=== PATIENT | male | born 1955 | race Hispanic/Latino ===

== ENCOUNTER → 2022-03-12 | Outpatient (CLI) | payer OTHER ==
[~2022-03-12] MED LIST: IOHEXOL 350 MG/ML 100ML INFUS..BTL IV ONE; IOHEXOL-350 50ML VIAL IV ONE
== END | disposition home or self-care (01) ==
LOC: RAH 10:41
PROVIDERS: ATTEND Internal Medicine Cardiovascular Disease
DX: J98.11 Atelectasis (principal); J90 Pleural effusion, not elsewhere classified; I70.0 Atherosclerosis of aorta; I70.8 Atherosclerosis of other arteries; I70.203 Unspecified atherosclerosis of native arteries of extremities, bilateral legs; I77.1 Stricture of artery
CPT/HCPCS: 75635; Q9967 ×2

== ENCOUNTER 2022-04-09 20:20 | Observation (INO) | payer OTHER, MEDICARE ==
[~2022-04-09] VITALS: Ht 177.8 cm; Wt 118.3 kg
[2022-04-09] MEDS ORDERED: ZOSYN 3.375GM +NS 50ML IV SCH (21:00)
[2022-04-09 21:15] LABS: BASOPHILS % (AUTO) 0.5 % (0.0-5.0); EOSINOPHILS % (AUTO) 3.6 % (0.0-8.0); HEMATOCRIT 46.1 % (42-54); LYMPHOCYTES % (AUTO) 19.2 % (21.0-51.0); MEAN CORPUSCULAR HEMOGLOBIN 27.2 pg (27.0-33.0); MEAN CORPUSCULAR HGB CONC 31.7 g/dL (32.0-36.0); MEAN CORPUSCULAR VOLUME 85.8 fL (79-99); MONOCYTES % (AUTO) 8.5 % (3.0-13.0); NEUTROPHILS % (AUTO) 67.8 % (40.0-77.0); PLATELET COUNT (AUTO) 252 K/uL (130-400); RED BLOOD CELL COUNT(AUTO) 5.37 MIL/uL (4.50-6.20); RED CELL DISTRIBUTION WIDTH 16.9 % (11.0-15.5); WHITE BLOOD COUNT (AUTO) 8.2 K/uL (4.8-10.8)
[2022-04-09 21:27] LABS: INR 0.98 (0.85-1.15); PROTHROMBIN TIME 10.7 SEC (9.6-11.6)
[2022-04-09 21:28] LABS: PARTIAL THROMBOPLASTIN TIME 27.7 SEC (26.3-35.5); POTASSIUM 5.1 mmol/L (3.5-5.1)
[2022-04-09 21:36] LABS: ALBUMIN 3.5 g/dL (3.5-5.0); TOTAL PROTEIN, SERUM 8.8 g/dL (6.0-8.3)
[2022-04-09 21:43] LABS: CRP QUANTITATIVE 17.6 mg/L (0.00-9.0)
[2022-04-09] MEDS ORDERED: NITROGLYCERIN 1GM OINT 1 INCH/1GM TD ONE (22:00)
[2022-04-09] MEDS ORDERED: ASPIRIN 325MG TAB PO ONE (22:00)
[2022-04-09] MEDS ORDERED: LEVOFLOXACIN 500 MG/D5W 100 ML 100 ML IV ONE (22:00)
[2022-04-09] MEDS: 0.9%NACL 1000ML 1,000 ML IV SCH (22:23)
[2022-04-09 22:54] LABS: CREATINE KINASE, TOTAL 94 U/L (21-232); MYOGLOBIN 60 ng/mL (10-92)
[2022-04-10] VITALS (16 sets, daily range): BP systolic 107–162; BP diastolic 64–100
[2022-04-10] MEDS ORDERED: ISOS30TA92 PO (02:51)
[2022-04-10] MEDS ORDERED: FURO20TA4 PO (02:51)
[2022-04-10] MEDS ORDERED: APIX5TAB PO (02:51)
[2022-04-10] MEDS ORDERED: SACU1TAB PO (02:51)
[2022-04-10] MEDS ORDERED: AEC81 PO (02:51)
[2022-04-10] MEDS ORDERED: TAMS-1 PO (02:51)
[2022-04-10] MEDS ORDERED: FURO40SO PO (02:51)
[2022-04-10] MEDS ORDERED: SERT-438 PO (02:51)
[2022-04-10] MEDS ORDERED: RANO500T6 PO (02:51)
[2022-04-10] MEDS ORDERED: ATOR40TA69 PO (02:51)
[2022-04-10] MEDS ORDERED: EMPA25TA PO (02:51)
[2022-04-10] MEDS ORDERED: [UNRECOGNIZED DRUG - CODE] PO (02:51)
[2022-04-10] MEDS ORDERED: LEVO25TA85 PO (02:51)
[2022-04-10] MEDS ORDERED: LEVO5TAB13 PO (02:51)
[2022-04-10] MEDS ORDERED: METO-391 PO (02:51)
[2022-04-10 04:04] LABS: BASOPHILS % (AUTO) 0.5 % (0.0-5.0); EOSINOPHILS % (AUTO) 4.3 % (0.0-8.0); HEMATOCRIT 42.8 % (42-54); MEAN CORPUSCULAR HEMOGLOBIN 27.3 pg (27.0-33.0); MEAN CORPUSCULAR HGB CONC 31.5 g/dL (32.0-36.0); MEAN CORPUSCULAR VOLUME 86.6 fL (79-99); MONOCYTES % (AUTO) 9.4 % (3.0-13.0); NEUTROPHILS % (AUTO) 70.3 % (40.0-77.0); PLATELET COUNT (AUTO) 238 K/uL (130-400); RED BLOOD CELL COUNT(AUTO) 4.94 MIL/uL (4.50-6.20); WHITE BLOOD COUNT (AUTO) 7.6 K/uL (4.8-10.8)
[2022-04-10 04:09] LABS: INR 1.04 (0.85-1.15); PROTHROMBIN TIME 11.3 SEC (9.6-11.6)
[2022-04-10 04:10] LABS: PARTIAL THROMBOPLASTIN TIME 29.9 SEC (26.3-35.5)
[2022-04-10 04:20] LABS: CREATININE 1.8 mg/dL (0.5-1.5); PHOSPHORUS 3.5 mg/dL (2.5-4.9); POTASSIUM 3.5 mmol/L (3.5-5.1)
[2022-04-10] MEDS ORDERED: ASPIRIN 325MG EC TAB PO SCH (09:00)
[2022-04-10] MEDS ORDERED: LEVOFLOXACIN 500 MG/D5W 100 ML IV SCH (09:00)
[2022-04-10] MEDS: 0.9%NACL 1000ML 1,000 ML IV SCH ×4 (09:24→20:16)
[2022-04-10] MEDS ORDERED: NITROGLYCERIN 50MG VIAL ONE (10:02)
[2022-04-10] MEDS ORDERED: IODIXANOL 320 MG/ML 100 ML VIAL ONE (10:02)
[2022-04-10] MEDS ORDERED: MIDAZOLAM HCL 1 MG/ML 2ML VIAL ONE (10:03)
[2022-04-10] MEDS ORDERED: LIDOCAINE HCL 400MG/20ML VIAL ONE (10:03)
[2022-04-10] MEDS ORDERED: FENTANYL CITRATE PF 50 MCG/1 ML 2ML VIAL ONE (10:03)
[2022-04-10] MEDS ORDERED: LIDOCAINE HCL 1% 10 ML VIAL ONE (10:36)
[2022-04-10] MEDS ORDERED: HEPARIN 10,000 UNIT/10ML (1,000 UNIT/ML) VIAL ONE (13:12)
[2022-04-10] MEDS ORDERED: 0.9%NACL 1000ML 1,000 ML IV SCH (15:00)
[2022-04-10] MEDS ORDERED: DEXTROSE 50%-WATER 50 ML DISP.SYRIN IV PRN (15:00)
[2022-04-10] MEDS ORDERED: GLUCAGON 1MG KIT 1 MG ML IM PRN (15:00)
[2022-04-10] MEDS ORDERED: LEVOFLOXACIN 250 MG/D5W 50ML 50 ML IVPB SCH (18:00)
[2022-04-10] MEDS: METOPROLOL SUCCINATE 50 MG TAB.SR.24H PO SCH (20:17)
[2022-04-10] MEDS: APIXABAN 5 MG TABLET PO SCH (20:17)
[2022-04-10] MEDS ORDERED: METOPROLOL SUCCINATE 50 MG TAB.SR.24H PO SCH (21:00)
[2022-04-10] MEDS ORDERED: ATORVASTATIN 40 MG TABLET PO SCH ×2 (21:00)
[2022-04-11 03:04] VITALS: BP 150/88
[2022-04-11 03:52] LABS: HEMATOCRIT 42.4 % (42-54); MEAN CORPUSCULAR HEMOGLOBIN 27.4 pg (27.0-33.0); MEAN CORPUSCULAR HGB CONC 31.8 g/dL (32.0-36.0); RED BLOOD CELL COUNT(AUTO) 4.93 MIL/uL (4.50-6.20); WHITE BLOOD COUNT (AUTO) 8.7 K/uL (4.8-10.8)
[2022-04-11 04:18] LABS: CREATININE 1.5 mg/dL (0.5-1.5); POTASSIUM 3.9 mmol/L (3.5-5.1)
[2022-04-11] MEDS: 0.9%NACL 1000ML 1,000 ML IV SCH (04:19)
[2022-04-11 07:30] VITALS: BP 133/63
[2022-04-11] MEDS ORDERED: LEVOTHYROXINE 25 MCG TABLET PO SCH (08:33)
[2022-04-11] MEDS: METOPROLOL SUCCINATE 50 MG TAB.SR.24H PO SCH (08:57)
[2022-04-11] MEDS: APIXABAN 5 MG TABLET PO SCH (08:58)
[2022-04-11] MEDS ORDERED: SERTRALINE HCL 50 MG TABLET PO SCH (09:00)
[2022-04-11] MEDS ORDERED: NON-FORMULARY MEDICATION 1 EACH (Levocetirizine Dihydrochloride 5 MG) PO SCH (09:00)
[2022-04-11] MEDS ORDERED: ASPIRIN 81MG CHEW TAB PO SCH (09:00)
[2022-04-11] MEDS ORDERED: SACUBITRIL/VALSARTAN 1 EACH TABLET PO SCH (09:00)
[2022-04-11] MEDS ORDERED: ASPIRIN 325MG EC TAB PO SCH (09:00)
[2022-04-11] MEDS ORDERED: ISOSORBIDE MONO 30MG SR TAB PO SCH (09:00)
[2022-04-11] MEDS ORDERED: RANOLAZINE 500 MG TAB.SR.12H PO SCH (09:00)
[2022-04-11] MEDS ORDERED: ***HM***(Levocetirizine Dihydrochloride 5 MG) PO SCH (09:00)
[2022-04-11 11:00] VITALS: BP 157/79
[2022-04-11] MEDS ORDERED: TAMSULOSIN HCL 0.4 MG CAP.ER.24H PO SCH (21:00)
== END 2022-04-11 15:10 | disposition home or self-care (01) ==
LOC: EDH 20:20 → EDHIP 21:36 → 4CH 04-10 00:31
PROVIDERS: ADMIT Internal Medicine; ATTEND Internal Medicine
DX: L97.529 Non-pressure chronic ulcer of other part of left foot with unspecified severity (principal); Z20.822 Contact with and (suspected) exposure to COVID-19; L97.519 Non-pressure chronic ulcer of other part of right foot with unspecified severity; I13.0 Hypertensive heart and chronic kidney disease with heart failure and stage 1 through stage 4 chronic kidney disease, or unspecified chronic kidney disease; E11.22 Type 2 diabetes mellitus with diabetic chronic kidney disease; I50.22 Chronic systolic (congestive) heart failure; N18.30 Chronic kidney disease, stage 3 unspecified; D72.829 Elevated white blood cell count, unspecified; R74.02 Elevation of levels of lactic acid dehydrogenase [LDH]; I65.29 Occlusion and stenosis of unspecified carotid artery; N17.9 Acute kidney failure, unspecified; N18.9 Chronic kidney disease, unspecified; E11.65 Type 2 diabetes mellitus with hyperglycemia; R79.89 Other specified abnormal findings of blood chemistry; I73.9 Peripheral vascular disease, unspecified; E78.00 Pure hypercholesterolemia, unspecified; E78.5 Hyperlipidemia, unspecified; E11.40 Type 2 diabetes mellitus with diabetic neuropathy, unspecified; E11.52 Type 2 diabetes mellitus with diabetic peripheral angiopathy with gangrene; E11.621 Type 2 diabetes mellitus with foot ulcer; E11.69 Type 2 diabetes mellitus with other specified complication; N13.30 Unspecified hydronephrosis; E66.9 Obesity, unspecified; I25.10 Atherosclerotic heart disease of native coronary artery without angina pectoris; I25.5 Ischemic cardiomyopathy; I48.0 Paroxysmal atrial fibrillation; M86.9 Osteomyelitis, unspecified; L03.90 Cellulitis, unspecified; Z79.01 Long term (current) use of anticoagulants; Z86.73 Personal history of transient ischemic attack (TIA), and cerebral infarction without residual deficits; Z89.432 Acquired absence of left foot; Z95.1 Presence of aortocoronary bypass graft; Z95.810 Presence of automatic (implantable) cardiac defibrillator; Z79.899 Other long term (current) drug therapy
CPT/HCPCS: 96365; 96366 ×2; 96368; 99285; 82550; 83874; 84484; 80053; 83880 ×2; 85025 ×2; 85610 ×2; 85730 ×2; 87040 ×2; 83605 ×2; 86140 ×2; 36415 ×3; 87635; 71045; 73630 ×2; 93970; 93925; 93005; 36246; 75716; 83615; 83735 ×2; 84100; 80048 ×2; 82948 ×4; 93308; 85027; G0378 ×41; J1956 ×2; J7030 ×2; J2543; C1894 ×2; C1760; C1769; J3010; J3490 ×3; J2250; J1644 ×2; Q9967; 99156; 99157